=== PATIENT | female | born 1970 | race African-American/Black ===

== ENCOUNTER 2020-07-11 11:54 | Observation (INO) ==
[2020-07-11] MEDS ORDERED: SODIUM CHLORIDE 0.9% 1,000 ML IV STA (13:10)
[2020-07-11] MEDS ORDERED: ONDANSETRON 4 MG/2 ML VIAL IV STA (13:10)
[2020-07-11 13:37] LABS: Basophils # 0.1 10*3/uL (0.0-0.2); Basophils % 1.1 % (0.0-0.8); Eosinophils # 0.1 10*3/uL (0.0-0.87); Eosinophils % 1.3 % (0.00-10.9); Hematocrit 39.3 VOL% (35.7-47.0); Hemoglobin 12.9 GM/DL (12.0-16.0); Immature Granulocytes % 0.4 %; Immature Granulocytes Absolute 0.02 #; Lymphocytes # 2.2 10*3/uL (1.4-4.0); Lymphocytes % 46.1 % (21.3-54.2); Mean Corpuscular HGB Conc 32.8 GM/DL (32-36); Mean Platelet Volume 10.2 FL (9.6-12.0); Monocytes % 10.8 % (1.7-12.7); Neutrophils % 40.3 % (38.7-73.9); Platelet Count 396 T/CUMM (130-400); Red Blood Count 4.68 MC/CUMM (3.8-5.5); Red Cell Distribution Width 14.6 % (9.3-17.3); White Blood Count 4.7 T/CUMM (4-12)
[2020-07-11 14:03] LABS: Albumin 3.6 G/DL (3.4-5.0); Bilirubin,Total 1.8 MG/DL (0.2-1.0); Calcium 9.5 MG/DL (8.5-10.1); Osmolality,Calculated 269.7 MOS/KG (273-304); Total Protein 8.2 G/DL (6.4-8.3)
[2020-07-11 14:11] LABS: Bilirubin,Urine Negative (Negative); Blood, Urine Small mg/dL (Negative); Glucose,Urine (UA) Negative (Negative); Hyaline Casts,Urine 28 /LPF (0-3); Ketones,Urine 80 mg/dL (Negative); Mucus,Urine Many /LPF (Occasional); Nitrite,Urine Negative (Negative); Protein,Urine 100 MG/DL; RBC,Urine 2 /HPF (0-4); Squamous Epithelial Cell,Urine Occasional /HPF (0-10); Urine Appearance Slightly Hazy (Clear); Urine Color Yellow (Yellow); WBC,Urine 4 /HPF (0-6)
[2020-07-11] MEDS ORDERED: POTASSIUM CHLORIDE 20 MEQ PACK PO STA (14:47)
[2020-07-11] MEDS ORDERED: DEXTROSE 50% 25 GM/50 ML VIAL IV STA (14:48)
[2020-07-11] MEDS ORDERED: DEXTROSE 50% 25 GM/50 ML SYRINGE IV ONE (14:55)
[2020-07-11] MEDS ORDERED: ACETAMINOPHEN 325 MG TABLET PO PRN (19:41)
[2020-07-11] MEDS ORDERED: CALCIUM CARBONATE CHEW 500 MG TABLET PO PRN (19:41)
[2020-07-11] MEDS ORDERED: ONDANSETRON 4 MG/2 ML VIAL IV PRN (19:41)
[2020-07-11] MEDS ORDERED: amLODIPine 5 MG TABLET PO PRN (22:15)
[2020-07-11] MEDS: POTASSIUM CHLORIDE INJ 20 MEQ in LACTATED RINGERS 1,000 ML IV SCH (22:55)
[2020-07-12 06:30] LABS: Calcium 8.9 MG/DL (8.5-10.1); Osmolality,Calculated 272.4 MOS/KG (273-304)
[2020-07-12] MEDS: PANTOPRAZOLE 40 MG TABLET PO SCH (08:05)
[2020-07-12] MEDS: FERROUS SULFATE 325 MG TABLET PO SCH (08:05)
[2020-07-12] MEDS: POTASSIUM CHLORIDE INJ 20 MEQ in LACTATED RINGERS 1,000 ML IV SCH ×3 (08:06→21:57)
[2020-07-12] MEDS: POTASSIUM CHLORIDE 20 MEQ TABLET PO SCH ×3 (10:20→17:41)
[2020-07-12] MEDS ORDERED: MAGNESIUM SULF RIDER 2 GM in PREMIX 1 EACH IV ONE (10:30)
[2020-07-12] MEDS: PROCHLORPERAZINE 5 MG TABLET PO SCH ×2 (16:10→21:40)
[2020-07-13] MEDS: POTASSIUM CHLORIDE RIDER 10 MEQ in PREMIX 1 EACH IV PRN ×9 (02:00→16:02)
[2020-07-13] MEDS: POTASSIUM CHLORIDE INJ 20 MEQ in LACTATED RINGERS 1,000 ML IV SCH ×3 (05:51→21:53)
[2020-07-13 06:37] LABS: Calcium 8.8 MG/DL (8.5-10.1); Osmolality,Calculated 274.3 MOS/KG (273-304)
[2020-07-13] MEDS: FERROUS SULFATE 325 MG TABLET PO SCH (09:32)
[2020-07-13] MEDS: PANTOPRAZOLE 40 MG TABLET PO SCH (09:33)
[2020-07-13] MEDS: PROCHLORPERAZINE 5 MG TABLET PO SCH ×3 (09:33→22:57)
[2020-07-14 06:36] LABS: Basophils % 0.8 % (0.0-0.8); Eosinophils # 0.2 10*3/uL (0.0-0.87); Hematocrit 33.4 VOL% (35.7-47.0); Hemoglobin 10.8 GM/DL (12.0-16.0); Immature Granulocytes % 0.3 %; Immature Granulocytes Absolute 0.01 #; Lymphocytes # 2.1 10*3/uL (1.4-4.0); Lymphocytes % 56.1 % (21.3-54.2); Mean Corpuscular HGB Conc 32.3 GM/DL (32-36); Mean Corpuscular Volume 84.1 FL (87-102); Mean Platelet Volume 10.6 FL (9.6-12.0); Monocytes % 10.8 % (1.7-12.7); Platelet Count 318 T/CUMM (130-400); Red Blood Count 3.97 MC/CUMM (3.8-5.5); Red Cell Distribution Width 14.7 % (9.3-17.3); White Blood Count 3.7 T/CUMM (4-12)
[2020-07-14 06:56] LABS: Osmolality,Calculated 274.3 MOS/KG (273-304)
[2020-07-14 07:04] LABS: Eosinophils 2 % (0-10); Lymphocytes 43 % (20-55); Microcytosis Slight; Myelocytes 1 %; Nucleated Red Blood Cells 7 (0-5); Platelet Estimate Normal; Segmented Neutrophils 36 % (50-85); Total Cells Counted 100
[2020-07-14] MEDS ORDERED: POTASSIUM CHLORIDE 20 MEQ TABLET PO ONE (08:35)
[2020-07-14] MEDS: POTASSIUM CHLORIDE INJ 20 MEQ in LACTATED RINGERS 1,000 ML IV SCH ×2 (09:57→14:51)
[2020-07-14] MEDS: FERROUS SULFATE 325 MG TABLET PO SCH ×3 (09:58→11:43)
[2020-07-14] MEDS: PANTOPRAZOLE 40 MG TABLET PO SCH (09:58)
[2020-07-14] MEDS: PROCHLORPERAZINE 5 MG TABLET PO SCH ×2 (09:58→15:03)
[2020-07-14 11:45] VITALS: BP 164/91
[2020-07-18 17:11] LABS: Renin Activity < 0.6 ng/mL/h
== END 2020-07-14 15:45 | disposition home or self-care (01) ==
LOC: N.EDINP 11:54 → N.ED 11:54 → SUATTDRO 19:41 → N.3E 20:30
PROVIDERS: ADMIT Internal Medicine Geriatric Medicine; ATTEND Internal Medicine